=== PATIENT | female | born 1960 | race Caucasian/White ===

== ENCOUNTER → 2016-12-03 | Day surgery (SDC) | payer OTHER ==
[~2016-12-03] MED LIST: CIMZIA400 MG/2 M SQ; DULOXETINE HCL30 MG PO; ESTRADIOL1 MG PO; FOLIC ACID1 MG PO; HYDROXYCHLOROQ200 MG PO; IMITREX100 MG PO; METHOTREXATE2.5 MG PO; NORCO 5-325 TA1 EACH PO; SYNTHROID112 MCG PO
[2016-12-03 07:23] LABS: HEMOGLOBIN 13.9 gm/dl (12.3-15.3); RED BLOOD COUNT 4.34 M/UL (4.00-5.10); WHITE BLOOD COUNT 7.5 K/UL (4.5-11.0)
[2016-12-03 07:53] LABS: BUN/CREATININE RATIO 27 (0-10)
== END | disposition home or self-care (01) ==
LOC: OR 06:49
PROVIDERS: Orthopaedic Surgery
PROC: 01N50ZZ Release Median Nerve, Open Approach (ICD-10-PCS; principal; 2016-12-03 09:15)
DX: G56.02 Carpal tunnel syndrome, left upper limb (principal); M06.9 Rheumatoid arthritis, unspecified; E07.9 Disorder of thyroid, unspecified; F41.9 Anxiety disorder, unspecified; F32.9 Major depressive disorder, single episode, unspecified; M79.7 Fibromyalgia; M19.90 Unspecified osteoarthritis, unspecified site; Z79.899 Other long term (current) drug therapy
CPT/HCPCS: 36415; 80048; 85027; J0690; J2250; J3010; J7120

== ENCOUNTER 2017-05-23 05:38 | Emergency (ER) | payer OTHER ==
[2017-05-23 07:05] LABS: HEMOGLOBIN 12.8 gm/dl (12.3-15.3)
== END 2017-05-23 08:08 | disposition home or self-care (01) ==
LOC: ER1 05:38
PROVIDERS: Physician Assistant
DX: N93.8 Other specified abnormal uterine and vaginal bleeding (principal)
CPT/HCPCS: 36415; 85014; 85018; 99284

== ENCOUNTER → 2020-09-13 | Outpatient (CLI) | payer BC, OTHER ==
[~2020-09-13] MED LIST changes: +BUSPAR 5MG TABLE5 MG PO; +BUSPIRONE HCL15 MG PO; +CETIRIZINE HCL10 MG PO; +CIMZIA400 MG/2 M SC; +COLACE 100MG C100 MG PO; +CYMBALTA60 MG PO; +DULOXETINE HCL60 MG PO; +ESTRACE1 MG PO; +ESTROGEN-METHY1 EAC2 PO; +FOLIC ACID 1 MG1 MG PO; +HYDROCHLOROTHIA25 MG PO; +HYDROCODON-ACE1 EAC2 PO; +IBUPROFEN600 MG PO; +IBUPROFEN800 MG PO; +LEVOTHYROXINE175 MCG PO; +MEDROXYPROGESTERONE PO; +MELATONIN10 M2 PO; +METHOTREXA25 MG/1 M6 SC; +MIRAPEX1 MG PO; +PROVERA10 MG PO; +RESTORIL15 MG PO; +SUMATRIPTAN SU100 MG PO; +SYNTHROID 125125 MCG PO; +VITAMIN D21250 MCG PO
[2020-09-13 11:11] LABS: HEMOGLOBIN 14.2 gm/dl (12.3-15.3); RED BLOOD COUNT 4.87 M/UL (4.00-5.10); WHITE BLOOD COUNT 6.2 K/UL (4.5-11.0)
[2020-09-13 12:05] LABS: BUN/CREATININE RATIO 22 (0-10)
== END ==
LOC: OPSV2 10:00
PROVIDERS: Orthopaedic Surgery
DX: Z01.818 Encounter for other preprocedural examination (principal); G56.01 Carpal tunnel syndrome, right upper limb; R94.31 Abnormal electrocardiogram [ECG] [EKG]
CPT/HCPCS: 36415; 80048; 85025; 93005

== ENCOUNTER → 2020-09-19 | Day surgery (SDC) | payer BC, OTHER | END | disposition home or self-care (01) | LOC: OR 06:36 | PROVIDERS: Orthopaedic Surgery | PROC: 0LB70ZZ Excision of Right Hand Tendon, Open Approach (ICD-10-PCS; 2020-09-19) | PROC: 01N50ZZ Release Median Nerve, Open Approach (ICD-10-PCS; principal; 2020-09-19 08:15) | DX: G56.01 Carpal tunnel syndrome, right upper limb (principal); M67.231 Synovial hypertrophy, not elsewhere classified, right forearm; K21.9 Gastro-esophageal reflux disease without esophagitis; E66.01 Morbid (severe) obesity due to excess calories; M06.9 Rheumatoid arthritis, unspecified; E78.5 Hyperlipidemia, unspecified; F32.9 Major depressive disorder, single episode, unspecified; E03.9 Hypothyroidism, unspecified; Z79.899 Other long term (current) drug therapy; Z20.822 Contact with and (suspected) exposure to COVID-19 | CPT/HCPCS: J2001; J2250; J2704; J3010; J7120 ==